=== PATIENT | female | born 1960 | race Caucasian/White ===

== ENCOUNTER 2018-07-06 08:31 | Day surgery (SDC) | payer OTHER, SELFPAY ==
[~2018-07-06] VITALS: Ht 152.4 cm; Wt 88.9 kg
[~2018-07-06 08:31] MED LIST: Bactrim Ds Tab1 EACH PO; Cleocin HCl300 MG PO; IBUP600 PO; RALO60; TRAM50 PO
[2018-07-07 05:19] LABS: BASOPHILS ABSOLUTE AUTO 0.01 K/mm3 (0.00-0.23); BASOPHILS PERCENT AUTO 0 % (0-2); EOSINOPHILS PERCENT AUTO 0 % (0-6); Hematocrit 34.4 % (33.0-51.0); Hemoglobin 11.7 g/dL (11.5-16.0); IMMATURE GRAN ABSOLUTE AUTO 0.04 K/mm3 (0.00-0.10); IMMATURE GRAN PERCENT AUTO 0 % (0-1); LYMPHOCYTES ABSOLUTE AUTO 0.94 K/mm3 (0.84-5.20); LYMPHOCYTES PERCENT AUTO 8 % (21-46); MONOCYTES PERCENT AUTO 5 % (4-13); Mean Corpuscular HGB 29.8 pg (26.0-34.0); Mean Corpuscular Volume 88 fL (80-100); Mean Platelet Volume 10.3 fL (9.1-12.4); NEUTROPHILS PERCENT AUTO 86 % (41-73); Platelet Count 187 K/mm3 (150-400); RDW Standard Deviation 41.8 fL (35.1-46.3); Red Blood Cell Count 3.92 M/mm3 (3.80-5.20); White Blood Cell Count 11.19 K/mm3 (4.00-11.30)
[2018-07-07 05:44] LABS: Anion Gap 10 mmol/L (6-16); Blood Urea Nitrogen 15 mg/dL (8-24); Bun/Creatinine Ratio 19.9 (12.0-20.0); CO2, Blood 23 mmol/L (21-32); Calcium, Blood 8.3 mg/dL (8.5-10.1); Chloride, Blood 106 mmol/L (98-108); Creatinine, Blood 0.75 mg/dL (0.40-1.00); Glomerular Filtration Rate >60 (60-); Glucose, Blood 172 mg/dL (70-99); Potassium, Blood 3.8 mmol/L (3.5-5.5); Sodium, Blood 139 mmol/L (136-145)
[2018-07-07] MEDS ORDERED: ASPI325EC PO (08:08)
[2018-07-07] MEDS ORDERED: Percocet 5-3251 EACH PO (08:09)
== END 2018-07-07 14:52 | disposition home or self-care (01) ==
LOC: ORSCMMR 08:31 → SURS 08:31 → ORSCMMR 08:32 → ORD 10:00 → ORSCMMR 10:00 → SURS 12:40 → ORSCMMR 12:40 → SURS 07-07 14:52
PROVIDERS: Orthopaedic Surgery
PROC: 0SRC0JA Replacement of Right Knee Joint with Synthetic Substitute, Uncemented, Open Approach (ICD-10-PCS; principal; 2018-07-06 10:00)
DX: M17.11 Unilateral primary osteoarthritis, right knee (principal); Z01.818 Encounter for other preprocedural examination; Z87.891 Personal history of nicotine dependence; E66.01 Morbid (severe) obesity due to excess calories; Z68.38 Body mass index [BMI] 38.0-38.9, adult
CPT/HCPCS: 36415; 73560-RT; 80048; 85025; 86850; 86900; 86901; 87081; 88300; 97110; 97116; 97161; 97530; C1776; G8978; G8979; J0171; J0690; J0735; J1885; J2250; J2405; J2765; J2795; J3010; J7120

== ENCOUNTER 2020-09-21 12:35 | Inpatient (IN) | payer OTHER ==
[~2020-09-21] VITALS: Ht 154.9 cm; Wt 86.2 kg
[~2020-09-21 12:35] MED LIST changes: +ASPI325EC PO; +Percocet 5-3251 EACH PO
[2020-09-21 13:11] LABS: BASOPHILS ABSOLUTE AUTO 0.03 K/mm3 (0.00-0.23); BASOPHILS PERCENT AUTO 0 % (0-2); EOSINOPHILS ABSOLUTE AUTO 0.09 K/mm3 (0.00-0.68); EOSINOPHILS PERCENT AUTO 1 % (0-6); Hematocrit 44.2 % (33.0-51.0); IMMATURE GRAN ABSOLUTE AUTO 0.03 K/mm3 (0.00-0.10); IMMATURE GRAN PERCENT AUTO 0 % (0-1); LYMPHOCYTES ABSOLUTE AUTO 1.16 K/mm3 (0.84-5.20); LYMPHOCYTES PERCENT AUTO 15 % (21-46); MONOCYTES ABSOLUTE AUTO 0.52 K/mm3 (0.16-1.47); MONOCYTES PERCENT AUTO 7 % (4-13); Mean Corpuscular HGB 28.3 pg (26.0-34.0); Mean Corpuscular HGB Conc 31.7 g/dL (31.5-36.5); Mean Corpuscular Volume 89 fL (80-100); Mean Platelet Volume 9.9 fL (9.1-12.4); NEUTROPHILS ABSOLUTE AUTO 6.16 K/mm3 (1.96-9.15); NEUTROPHILS PERCENT AUTO 77 % (41-73); Platelet Count 251 K/mm3 (150-400); RDW Coefficient Variation 14.1 % (11.7-14.2); RDW Standard Deviation 45.9 fL (35.1-46.3); Red Blood Cell Count 4.95 M/mm3 (3.80-5.20); White Blood Cell Count 7.99 K/mm3 (4.00-11.30)
[2020-09-21 13:35] LABS: Alanine Aminotransfer (ALT/SGP 34 U/L (12-78); Albumin, Blood 3.3 g/dL (3.4-5.0); Albumin/Globulin Ratio 1.1 (0.8-1.8); Alk Phos 99 U/L (50-136); Anion Gap 9 mmol/L (6-16); Aspartate Aminotrans (AST/SGOT 20 U/L (12-37); Bilirubin, Total 1.1 mg/dL (0.1-1.0); Blood Urea Nitrogen 13 mg/dL (8-24); Bun/Creatinine Ratio 18.3 (12.0-20.0); CO2, Blood 20 mmol/L (21-32); Calcium, Blood 8.5 mg/dL (8.5-10.1); Chloride, Blood 111 mmol/L (98-108); Creatinine, Blood 0.71 mg/dL (0.40-1.00); Globulin, Blood 3.1 g/dL (2.2-4.0); Glomerular Filtration Rate >60 (60-); Glucose, Blood 131 mg/dL (70-99); Potassium, Blood 3.9 mmol/L (3.5-5.5); Sodium, Blood 140 mmol/L (136-145); Total Protein, Blood 6.4 g/dL (6.4-8.2)
[2020-09-21 15:17] LABS: Magnesium, Blood 1.8 mg/dL (1.6-2.4)
[2020-09-21 21:52] LABS: Adenovirus Not Detected (NOT DETECT); Bordetella pertussis Not Detected (NOT DETECT); Chlamydophila pneumoniae Not Detected (NOT DETECT); Coronavirus 229E Not Detected (NOT DETECT); Coronavirus HKU1 Not Detected (NOT DETECT); Coronavirus NL63 Not Detected (NOT DETECT); Coronavirus OC43 Not Detected (NOT DETECT); Human Metapneumovirus Not Detected (NOT DETECT); Human Rhinovirus/Enterovirus Detected (NOT DETECT); Influenza A/2009-H1 Not Detected (NOT DETECT); Influenza A/H1 Not Detected (NOT DETECT); Influenza A/H3 Not Detected (NOT DETECT); Influenza B Not Detected (NOT DETECT); Mycoplasma pneumoniae Not Detected (NOT DETECT); Parainfluenza Virus 1 Not Detected (NOT DETECT); Parainfluenza Virus 2 Not Detected (NOT DETECT); Parainfluenza Virus 3 Not Detected (NOT DETECT); Parainfluenza Virus 4 Not Detected (NOT DETECT); Respiratory Syncytial Virus Not Detected (NOT DETECT); SARS-Cov-2 (COVID-19), BioFire Not Detected (NOT DETECT)
[2020-09-22 05:59] LABS: BASOPHILS ABSOLUTE AUTO 0.05 K/mm3 (0.00-0.23); BASOPHILS PERCENT AUTO 1 % (0-2); EOSINOPHILS ABSOLUTE AUTO 0.11 K/mm3 (0.00-0.68); EOSINOPHILS PERCENT AUTO 1 % (0-6); Hematocrit 44.3 % (33.0-51.0); Hemoglobin 14.1 g/dL (11.5-16.0); IMMATURE GRAN ABSOLUTE AUTO 0.03 K/mm3 (0.00-0.10); IMMATURE GRAN PERCENT AUTO 0 % (0-1); LYMPHOCYTES ABSOLUTE AUTO 1.66 K/mm3 (0.84-5.20); LYMPHOCYTES PERCENT AUTO 16 % (21-46); MONOCYTES ABSOLUTE AUTO 0.97 K/mm3 (0.16-1.47); MONOCYTES PERCENT AUTO 9 % (4-13); Mean Corpuscular HGB 28.7 pg (26.0-34.0); Mean Corpuscular HGB Conc 31.8 g/dL (31.5-36.5); Mean Corpuscular Volume 90 fL (80-100); Mean Platelet Volume 10.3 fL (9.1-12.4); NEUTROPHILS ABSOLUTE AUTO 7.71 K/mm3 (1.96-9.15); NEUTROPHILS PERCENT AUTO 73 % (41-73); Platelet Count 274 K/mm3 (150-400); RDW Coefficient Variation 14.3 % (11.7-14.2); Red Blood Cell Count 4.91 M/mm3 (3.80-5.20); White Blood Cell Count 10.53 K/mm3 (4.00-11.30)
--- NOTE | 2020-09-22 06:05 | NUR ---
shift summary rested through night ao room air - lung sounds clear upper/dim bases - nonproductive/dry cough cough meds x2 voiding independently to restroom no c/o pain vss call light within reach, bed in lowest position. will continue to monitor.
[2020-09-22 06:25] LABS: Anion Gap 5 mmol/L (6-16); Blood Urea Nitrogen 13 mg/dL (8-24); Bun/Creatinine Ratio 14.7 (12.0-20.0); CO2, Blood 28 mmol/L (21-32); Calcium, Blood 8.8 mg/dL (8.5-10.1); Chloride, Blood 106 mmol/L (98-108); Creatinine, Blood 0.89 mg/dL (0.40-1.00); Glomerular Filtration Rate >60 (60-); Glucose, Blood 107 mg/dL (70-99); Magnesium, Blood 2.1 mg/dL (1.6-2.4); Phosphorus, Blood 3.3 mg/dL (2.5-4.9); Sodium, Blood 139 mmol/L (136-145); Troponin I 0.039 ng/mL (0.000-0.040)
--- NOTE | 2020-09-22 08:19 | NUR ---
pt sitting on the side of the bed awake a/ox3, pleasant and cooperative with care, follows commands well, denies pain, just a bit sob per pt, but is much better than when she came in, states she slept a little last night, lungs are clear dim in bases, shallow resp, on r/a, reports a productive cough of white sputum, hrr, tele in place running st per monitor, see strip, trace edema noted, PPP+2, cap refill <3sec, vs stable, afebrile, iv site to rac site is clear and patent, btx4, abd flat soft nontender, voids without diff, skin c/w/d, maew, antwan, call light in reach.
--- NOTE | 2020-09-22 13:17 | NUR ---
Echocardiogram using 0.50ml of Definity contrast performed.
--- NOTE | 2020-09-22 18:40 | NUR ---
PT SITTING UP ON THE SIDE OF THE BED, STATES SHE'S DOING FINE, NO COMPLAINTS. NO ACUTE CHANGES. CALL LIGHT IN REACH.
--- NOTE | 2020-09-23 05:17 | NUR ---
shift summary pt rested comfortably through night ao room air tele nsr/tachy voiding to bathroom independently no bm vss no c/o pain no issues with sob or coughing call light within reach, bed in lowest position. will continue to monitor.
--- NOTE | 2020-09-23 07:12 | NUR ---
ASSUMED CARE OF PT, RECEIVED REPORT FROM JENNA DOUGHERTY. PT SITTING UP IN BED, NIKOLAI, DENIES NEEDS AT THIS TIME.
--- NOTE | 2020-09-23 17:50 | NUR ---
SHIFT SUMMARY: NO ACUTE CHANGES T/OUT SHIFT. PT CONTINUES A&OX4, INDEPENDENT IN ROOM. PT TO BE NPO AT MIDNIGHT FOR ANGIOGRAM IN AM, PT HAS BEEN INFORMED OF NPO STATUS. PT CONTINUES ON ROOM AIR, HAS DENIES PRN COUGH MEDICATION THUS FAR. WILL CONTINUE TO MONITOR AND TREAT ACCORDINGLY UNTIL CHANGE OF SHIFT.
--- NOTE | 2020-09-24 05:10 | NUR ---
shift summary ao tele nsr c couple beats vtach per tele room air >90% voiding to toilet independently - 1200ml no c/o pain prn cough meds x1 vss npo since midnight for preparation of angio call light within reach, bed in lowest position. will continue to monitor.
--- NOTE | 2020-09-24 07:07 | NUR ---
ASSUMING CARE OF PT, RECEIVED REPORT FROM JENNA DOUGHERTY. [facility] STAFF ARRIVES TO TAKE PT FOR ANGIOGRAM.
[2020-09-24 10:05] LABS: Albumin, Blood 3.2 g/dL (3.4-5.0); Anion Gap 9 mmol/L (6-16); Blood Urea Nitrogen 13 mg/dL (8-24); Bun/Creatinine Ratio 19.6 (12.0-20.0); CO2, Blood 27 mmol/L (21-32); Calcium, Blood 8.6 mg/dL (8.5-10.1); Chloride, Blood 103 mmol/L (98-108); Creatinine, Blood 0.66 mg/dL (0.40-1.00); Glomerular Filtration Rate >60 (60-); Glucose, Blood 112 mg/dL (70-99); Phosphorus, Blood 2.8 mg/dL (2.5-4.9); Potassium, Blood 3.4 mmol/L (3.5-5.5); Sodium, Blood 139 mmol/L (136-145)
--- NOTE | 2020-09-24 13:56 | NUR ---
Patient gave student nurse permission to care for her on 09/24/20.
[2020-09-25 06:03] LABS: Albumin, Blood 3.2 g/dL (3.4-5.0); Anion Gap 7 mmol/L (6-16); Blood Urea Nitrogen 16 mg/dL (8-24); Bun/Creatinine Ratio 19.8 (12.0-20.0); CO2, Blood 28 mmol/L (21-32); Calcium, Blood 8.8 mg/dL (8.5-10.1); Chloride, Blood 103 mmol/L (98-108); Creatinine, Blood 0.81 mg/dL (0.40-1.00); Glomerular Filtration Rate >60 (60-); Glucose, Blood 89 mg/dL (70-99); Magnesium, Blood 2.3 mg/dL (1.6-2.4); Phosphorus, Blood 3.4 mg/dL (2.5-4.9); Sodium, Blood 138 mmol/L (136-145)
--- NOTE | 2020-09-25 06:37 | NUR ---
60 year old Female with new onset chf , cough, positive for rhino/enterovirus on resp panel neg for covid 19 was PCU transfer yesterday. She had rt & left cardiac cath yesterday & she tolerated well without complication. PT says nonsmoker with strong family hx of cardiac disease. On tele with SR or ST with PVC. Medicated for cough with tessalon & robitussin with helpful effect. PT says hoping to dc home today.
[2020-09-25] MEDS ORDERED: FURO40 PO ×2 (08:48→09:59)
[2020-09-25] MEDS ORDERED: LISI5 PO (08:49)
[2020-09-25] MEDS ORDERED: METO25ER PO (08:49)
--- NOTE | 2020-09-25 10:10 | NUR ---
DISCHARGE HOME WITH ALL PERSONAL BELONGINGS IN PT POSSESSION. NO ACUTE EVENTS THIS MORNING, ON RA WITH NO COMPLAINTS. VERBALIZED UNDERSTANDING OF HEART FAILURE EDUCATION AND WRITTEN MATERIALS PROVIDED. VERBALIZED UNDERSTANDING OF MEDICATIONS, FOLLOW-UPS AND ALL OTHER INSTRUCTIONS.
== END 2020-09-25 11:02 | disposition home or self-care (01) | DRG 287 ==
LOC: ER 12:35 → PCU 12:36 → MEDS 09-24 16:05 → PCU 09-24 16:07 → MEDS 09-24 16:34
PROVIDERS: Emergency Medicine; Physician Assistant; ADMIT Internal Medicine
PROC: 4A023N7 Measurement of Cardiac Sampling and Pressure, Left Heart, Percutaneous Approach (ICD-10-PCS; principal; 2020-09-24)
PROC: B2111ZZ Fluoroscopy of Multiple Coronary Arteries using Low Osmolar Contrast (ICD-10-PCS; 2020-09-24)
DX: I50.23 Acute on chronic systolic (congestive) heart failure (principal); I42.0 Dilated cardiomyopathy; Z20.828 Contact with and (suspected) exposure to other viral communicable diseases; Z87.891 Personal history of nicotine dependence; E66.9 Obesity, unspecified; Z96.651 Presence of right artificial knee joint; I27.20 Pulmonary hypertension, unspecified; I77.810 Thoracic aortic ectasia; J00 Acute nasopharyngitis [common cold]; J06.9 Acute upper respiratory infection, unspecified; I35.1 Nonrheumatic aortic (valve) insufficiency; Z68.35 Body mass index [BMI] 35.0-35.9, adult
CPT/HCPCS: 0202U; 36415; 71045; 71260; 76937; 80048; 80053; 80069; 83735; 83880; 84100; 84145; 84443; 84484; 85025; 93005; 93010; 93460; 94640; 94760; 96361; 96372-59; 96374; 96375; 98960; 99152; 99285-25; A9270; C1769; C1887; C1894; C8929; J1644; J1650; J1940; J2250; J3010; J7030; J7050; Q9957; Q9967; U0003

== ENCOUNTER → 2024-11-11 | Outpatient (CLI) | payer MEDICARE, OTHER ==
[~2024-11-11] MED LIST changes: +FURO40 PO; +LISI5 PO; +METO25ER PO
[2024-11-11 15:27] LABS: Stool Occult Blood Guaiac 1 Neg (Neg)
== END ==
LOC: LAB SHORT 07:35 → LAB 07:35
PROVIDERS: Family Medicine
DX: Z12.11 Encounter for screening for malignant neoplasm of colon (principal)
CPT/HCPCS: 82270